=== PATIENT | female | born 1955 ===

== ENCOUNTER 2018-01-12 12:54 | Emergency (ER) | payer SELFPAY | END 2018-01-12 15:39 | disposition home or self-care (01) | LOC: D.ER 12:54 | DX: S16.1XXA Strain of muscle, fascia and tendon at neck level, initial encounter (principal); V49.9XXA Car occupant (driver) (passenger) injured in unspecified traffic accident, initial encounter; Y93.89 Activity, other specified; Y92.410 Unspecified street and highway as the place of occurrence of the external cause; M79.621 Pain in right upper arm; F17.200 Nicotine dependence, unspecified, uncomplicated ==